=== PATIENT | female | born 1975 | race Caucasian/White ===

== ENCOUNTER → 2021-02-14 09:44 | Outpatient (CLI) | payer OTHER, SELFPAY ==
[2021-02-14 20:38] LABS: COVID19 - ORCAS (NP or Nasal) Negative (Negative)
== END ==
PROVIDERS: Family Provider Family Medicine; PCP Family Medicine; Visit Provider Physician Assistant
DX: Z20.822 Contact with and (suspected) exposure to COVID-19 (principal)
CPT/HCPCS: U0003

== ENCOUNTER 2024-04-26 17:22 | Emergency (ER) | payer OTHER, SELFPAY ==
--- NOTE | 2024-04-26 17:35 | PC.NURSE ---
Patient called for triage at this time, she is present at registration desk, but unsure if she wants to be seen in ER now because she can not confirm that her insurance. Registration instructed to call RN if patient decides she does want to be seen.
--- NOTE | 2024-04-26 18:15 | PC.NURSE ---
Patient informed registration after screaming on her phone that she wasn't going to be seen. Patient aggressively left the hospital.
--- NOTE | 2024-04-27 00:42 | ED.GENADULT ---
HPI - General Adult General Stated complaint: body rash, bites History of Present Illness HPI narrative: Patient left without seeing medical provider Related Data Previous Rx's Medication Instructions Recorded diphenhydramine-zinc acetate 2 28 gm TP SEE INSTRUCTIONS ##1 09/09/17 %-0.1 % topical cream (Benadryl Extra Strength) doxycycline hyclate 100 mg capsule 100 mg PO Q12H #14 caps 09/09/17 Allergies Allergy/AdvReac Type Severity Reaction Status Date / Time Penicillins [PENICILLINS] Allergy Unknown Unverified 10/03/17 12:37 Sulfa (Sulfonamide Allergy Unknown Unverified 10/03/17 12:37 Antibiotics) [SULFA (SULFONAMIDE ANTIBIOTICS)] Patient History Surgical History (Updated 10/23/17 @ 06:10 by Conversion Provider) History of elective Discharge Plan Departure Patient Disposition: Left Without Being Seen Clinical Impression: Patient left before triage assessment Prescriptions: No Action doxycycline hyclate 100 MG capsule 100 mg PO Q12H Qty: 14 0RF diphenhydramine-zinc acetate [Benadryl Extra Strength] 28.3 GM cream 28 gm TP SEE INSTRUCTIONS Qty: 1 0RF
== END 2024-04-26 18:15 | disposition left against medical advice (07) ==
PROVIDERS: Emergency Provider Emergency Medicine; Family Provider Family Medicine